=== PATIENT | female | born 1985 | race Hispanic/Latino ===

== ENCOUNTER 2024-09-15 09:47 | Emergency (ER) | payer OTHER ==
[~2024-09-15] VITALS: Ht 154.9 cm; Wt 98.8 kg
[~2024-09-15 09:47] MED LIST: MEDDOSEPAK PO; PRENATABS OR; TYLENOL500 MG OR
[2024-09-15 09:52] VITALS: BP 170/92
[2024-09-15 09:58] VITALS: BP 132/90
[2024-09-15 10:25] LABS: BASO% 0.3 % (0-3); EOS% 1.9 % (0-8); IMMATURE GRANULOCYTES 0.2 % (0.0-5.0); LYMPH% 33.4 % (15-41); MEAN CORPUSCULAR HGB 28.6 pG CALC (26.0-32.0); MEAN CORPUSCULAR HGB CONC 32.6 g/dL CAL (32.0-36.0); MONO% 6.9 % (2-13); NEUT# 3.33 thou/uL (2.00-7.15); NEUT% 57.3 % (42-76); RED BLOOD COUNT 4.61 mill/uL (4.20-5.60); RED CELL DISTRI WIDTH 12.4 % (11.5-15.5)
[2024-09-15 10:29] VITALS: BP 117/80
[2024-09-15 10:31] VITALS: BP 102/48
[2024-09-15 10:38] LABS: HEMATOCRIT 40.5 % (37.0-47.0); HEMOGLOBIN 13.2 g/dl (12.0-16.0); MEAN CELL VOLUME 87.9 fL CALC (80.0-100.0)
[2024-09-15 11:20] LABS: CREATININE 0.6 mg/dL (0.5-1.0); POTASSIUM 3.8 mmol/l (3.5-5.1); TOTAL PROTEIN 7.4 g/dL (6.3-8.2)
[2024-09-15 11:23] LABS: ALBUMIN 4.4 g/dL (3.2-5.0); BILIRUBIN, TOTAL 0.6 mg/dL (0.02-1.3)
[2024-09-15 11:31] VITALS: BP 112/84
[2024-09-15 12:26] LABS: URINE BILIRUBIN - DIPSTICK Negative (NEGATIVE); URINE BLOOD DIPSTICK Large (NEGATIVE); URINE GLUCOSE - DIPSTICK Negative (NEGATIVE); URINE KETONE Negative (NEGATIVE); URINE LEUK ESTERASE Negative (NEGATIVE); URINE NITRITE - DIPSTICK Negative (Negative); URINE PROTEIN - DIPSTICK Trace mg/dL (NEG-TRACE); URINE SPECIFIC GRAVITY <=1.005; URINE UROBILINOGEN - DIPSTICK 0.2 E.U./dL (0.2)
[2024-09-15 12:28] LABS: URINE COLOR Pink
[2024-09-15 12:33] LABS: URINE EPITHELIAL CELLS MODERATE EPI/hpf (0-FEW)
[2024-09-15 13:50] VITALS: BP 112/84
== END 2024-09-15 14:08 | disposition home or self-care (01) | DRG 833 ==
LOC: ED 09:47
PROVIDERS: Family Medicine
DX: O20.9 Hemorrhage in early pregnancy, unspecified (principal); Z3A.01 Less than 8 weeks gestation of pregnancy

== ENCOUNTER 2024-09-17 00:48 | Emergency (ER) | payer OTHER ==
[~2024-09-17] VITALS: Ht 152.4 cm; Wt 104.0 kg
[2024-09-17] MEDS ORDERED: PRENATA3 PO (01:04)
[2024-09-17] MEDS ORDERED: SODIUM CHLORIDE 0.9% 1,000 ML IV ONE (01:10)
[2024-09-17] MEDS ORDERED: KETOROLAC TROMETHAMINE 30 MG/ML SDV IV ONE (01:15)
[2024-09-17] MEDS ORDERED: ACETAMINOPHEN 500 MG TAB PO ONE (01:15)
[2024-09-17 01:23] LABS: BASO% 0.4 % (0-3); HEMATOCRIT 38.9 % (37.0-47.0); HEMOGLOBIN 12.7 g/dl (12.0-16.0); IMMATURE GRANULOCYTES 0.4 % (0.0-5.0); LYMPH% 26.8 % (15-41); MEAN CORPUSCULAR HGB 28.7 pG CALC (26.0-32.0); MEAN CORPUSCULAR HGB CONC 32.6 g/dL CAL (32.0-36.0); MONO% 4.9 % (2-13); NEUT# 5.23 thou/uL (2.00-7.15); NEUT% 65.5 % (42-76); RED BLOOD COUNT 4.42 mill/uL (4.20-5.60); RED CELL DISTRI WIDTH 12.5 % (11.5-15.5)
[2024-09-17 01:36] VITALS: BP 116/72
[2024-09-17 01:37] LABS: ALBUMIN 4.3 g/dL (3.2-5.0); CREATININE 0.6 mg/dL (0.5-1.0); TOTAL PROTEIN 7.8 g/dL (6.3-8.2)
[2024-09-17 01:49] LABS: BILIRUBIN, TOTAL 1.1 mg/dL (0.02-1.3); POTASSIUM 4.8 mmol/l (3.5-5.1)
[2024-09-17 02:00] VITALS: BP 111/60
[2024-09-17 02:30] VITALS: BP 120/73
[2024-09-17] MEDS ORDERED: TYLENOL # 31 TA1 PO (02:59)
[2024-09-17] MEDS ORDERED: Acetaminophen 300 MG/Codeine 30 MG/COMBO PO ONE (03:00)
[2024-09-17 03:01] VITALS: BP 115/65
[2024-09-17 03:05] VITALS: BP 115/65
== END 2024-09-17 03:05 | disposition home or self-care (01) ==
LOC: ED 00:48
PROVIDERS: Family Medicine
DX: O03.4 Incomplete spontaneous abortion without complication (principal)